=== PATIENT | female | born 2000 | race Caucasian/White ===

== ENCOUNTER 2023-04-20 09:36 | Emergency (ER) | payer OTHER, SELFPAY ==
--- NOTE | ~2023-04-20 | CT_ITS ---
CT of the Abdomen and Pelvis: Indication: Abdominal pain Technique: 2.5 mm axial scans were obtained through the abdomen and pelvis following intravenous adm inistration of 100 cc of Omnipaque 350. Dose reduction technique was used on this scan by utilizing a utomated exposure control and iterative reconstruction technique. The dose-length product (DLP) was 6 65.65 mGy-cm. Findings: Scans through the lung bases are unremarkable. The liver, spleen, pancreas, gallbladder, adrenals and kidneys are within normal limits. No evidence of aortic aneurysm. No retroperitoneal lymphadenopathy. No bowel obstruction or bowel wall thickening. There shotty right lower quadrant lymph nodes are pres ent. Normal appendix. Images through the pelvis were performed. Urinary bladder unremarkable. No pelvic mass seen. No ascit es. Impression: Shotty right lower quadrant lymph nodes. Correlate for mesenteric adenitis. No other significant findings. Reviewed, dictated and finalized at [facility]. Impression: Shotty right lower quadrant lymph nodes. Correlate for mesenteric adenitis. No other significant findings.
[2023-04-20 09:47] VITALS: BP 138/94; PULSE 140; RESP 18; TEMP 36.6; O2SAT 98
--- NOTE | 2023-04-20 09:57 | ED.NAVMDI ---
HPI - Nausea/Vomiting/Diarrhea General Chief complaint: Nausea/Vomiting/Diarrhea Stated complaint: stomach problems Time Seen by Provider: 04/20/23 09:46 History of Present Illness HPI Narrative: 22-year-old female no medical problems presents to the emergency room for evaluation of nausea, vomiting, and diarrhea associated with right upper quadrant abdominal pain. Patient states her abdominal pain radiates into her back and describes it as a stabbing sensation. Denies any blood in her emesis or stool. Last menstrual period was 1 week ago. Related Data Allergies Allergy/AdvReac Type Severity Reaction Status Date / Time amoxicillin Allergy Rash Verified 04/20/23 09:59 cefprozil [From Cefzil] Allergy Rash Verified 04/20/23 09:59 clavulanic acid Allergy Rash Verified 04/20/23 09:59 [From Augmentin] Penicillins Allergy Rash Verified 04/20/23 09:59 Review of Systems Review of Systems: CONSTITUTIONAL: Denies fever, chills, or sweats. EYES: Denies visual changes, redness, or discharge. ENT: Denies rhinorrhea, congestion, sore throat, or otalgia. CARDIOVASCULAR: Denies chest pain, palpitations, or edema. RESPIRATORY: Denies cough or dyspnea. GASTROINTESTINAL: Reports abdominal pain, nausea, vomiting, or diarrhea. GENITOURINARY: Denies dysuria or hematuria. SKIN: Denies rash or itching. MUSCULOSKELETAL: Denies back pain, joint pain, or myalgia. NEUROLOGIC: Denies headache, numbness, dizziness, or weakness. PSYCHIATRIC: Denies anxiety or depression. Exam Narrative: GENERAL: Well-appearing, well-nourished, no physical limitations, and in no acute distress. HEAD: Normocephalic, atraumatic. EYES: Conjunctivae normal, PERRLA and EOMI. CHEST: Clear to auscultation. No respiratory distress. No wheezes rales or rhonchi. HEART: Regular rate and rhythm. No murmur heard. Normal peripheral pulses. ABDOMEN: Soft, right upper quadrant tenderness, nondistended, normal active bowel sounds. BACK: No CVA tenderness EXTREMITIES: Normal range of motion. No edema. No clubbing or cyanosis SKIN: Warm, dry, no rash. No noted wounds NEURO: No focal deficits. Alert and oriented x3. MAEW. CN's II-XI intact bilaterally, normal gait PSYCH: Cooperative. Normal mood and affect. Course Vital Signs Vital signs: Vital Signs Temperature 36.6 C 04/20/23 09:47 Pulse Rate 140 H 04/20/23 09:47 Respiratory Rate 18 04/20/23 09:47 Blood Pressure 138/94 H 04/20/23 09:47 Pulse Oximetry 98 04/20/23 09:47 Oxygen Delivery Room Air 04/20/23 09:47 Temperature 36.6 C 04/20/23 09:47 Pulse Rate 117 H 04/20/23 10:46 Respiratory Rate 22 H 04/20/23 10:46 Blood Pressure 134/87 04/20/23 10:46 Pulse Oximetry 100 04/20/23 10:46 Oxygen Delivery Room Air 04/20/23 09:47 MDM - Nausea/Vomiting/Diarrhea MDM Narrative Medical decision making narrative: 22-year-old female presented emergency room for evaluation of a right upper quadrant abdominal pain associated with nausea and vomiting. Lab work was unremarkable. CT scan shows evidence of possible mesenteric adenitis. Patient responded well to IV Zofran. Discussed findings with patient. We will send patient home with Rx for Zofran. Lab Data 04/20/23 09:59 04/20/23 09:59 Labs: Lab Results 04/20/23 Range/Units 09:59 WBC 10.9 H (4.5-10.0) K/mm3 RBC 5.39 (4.2-5.4) M/mm3 Hgb 14.9 (12.0-15.0) g/dL Hct 45.8 (37.0-47.0) % MCV 85.0 (80-100) fl MCH 27.6 (26-34) pg MCHC 32.5 (32-36) g/dl RDW 14.0 (11.5-14.5) % Plt Count 266 (150-375) k/mm3 MPV 9.3 (7.4-10.4) fl Immature Gran % (Auto) 0.4 (0-0.5) % Neut % (Auto) 88.3 H (45.5-73.1) % Lymph % (Auto) 6.4 L (18.3-44.2) % Jerome % (Auto) 4.3 (2.6-8.5) % Eos % (Auto) 0.3 (0-4.4) % Baso % (Auto) 0.3 (0.2-1.2) % Lymph # (Auto) 0.70 L (0.9-3.2) K/mm3 Jerome # (Auto) 0.5 (0.1-0.6) K/mm3 Eos # (Auto) 0.0 (0-0.3) K/mm3 Baso # (Auto) 0.0 (0.0-0.1
[2023-04-20 10:02] VITALS: BP 120/85; PULSE 139; RESP 20; O2SAT 100
[2023-04-20] MEDS: ONDANSETRON INJ 4 MG/2 ML VIAL IV PUSH (10:06)
[2023-04-20] MEDS: SODIUM CHLORIDE 0.9% IV 1,000 ML 999 ML IV CONT (10:06)
[2023-04-20 10:09] LABS: Basophils Percent Auto 0.3 % (0.2-1.2); Eosinophils Percent Auto 0.3 % (0-4.4); Hematocrit 45.8 % (37.0-47.0); Hemoglobin 14.9 g/dL (12.0-15.0); Immature Granulocyte Absolute 0.04 K/mm3 (0.00-0.031); Immature Granulocyte Percent A 0.4 % (0-0.5); Lymphocytes Percent Auto 6.4 % (18.3-44.2); Mean Corpuscular HGB Conc 32.5 g/dl (32-36); Mean Corpuscular Hemoglobin 27.6 pg (26-34); Mean Platelet Volume 9.3 fl (7.4-10.4); Monocytes Absolute Auto 0.5 K/mm3 (0.1-0.6); Monocytes Percent Auto 4.3 % (2.6-8.5); Neutrophils Absolute Auto 9.6 K/mm3 (1.3-6.7); Neutrophils Percent Auto 88.3 % (45.5-73.1); Platelet Count Result 266 k/mm3 (150-375); Red Blood Count 5.39 M/mm3 (4.2-5.4); White Blood Count 10.9 K/mm3 (4.5-10.0)
[2023-04-20 10:11] LABS: Appearance Urine Clear (Clear); Bilirubin Urine Negative (Negative); Blood Urine Negative (Negative); Color Urine Yellow (Yellow); Glucose Urine UA Negative (Negative); Ketones Urine Trace mg/dL (Negative); Leukocyte Esterase Ur Negative LEU/UL (Negative); Nitrate Urine Negative (Negative); Protein Urine Negative (Negative); Specific Grav Ur 1.027 (1.001-1.035); Urobilinogen Urine 0.2 mg/dL (<2.0)
[2023-04-20 10:16] VITALS: BP 129/93; PULSE 126; RESP 24; O2SAT 98
[2023-04-20 10:25] LABS: Alanine Aminotransferase 24 U/L (6-35); Albumin Level 4.4 g/dL (3.5-5.1); Alkaline Phosphatase 68 U/L (38-126); Anion Gap 11 mmol/L (8-16); Aspartate Amino Transferase 31 U/L (14-36); Bilirubin,Total 0.8 mg/dL (0.2-1.3); Blood Urea Nitrogen 14 mg/dL (7-17); Calcium 8.9 mg/dL (8.4-10.2); Carbon Dioxide 18 mmol/L (22-30); Chloride 109 mmol/L (98-107); Estimated CRCL calculation 141 ml/min; Estimated Glomerular Filt Rate > 60; Glucose 119 mg/dL (65-110); Lipase 187 U/L (23-300); Sodium 138 mmol/L (137-145)
[2023-04-20 10:46] VITALS: BP 134/87; PULSE 117; RESP 22; O2SAT 100
[2023-04-20 10:47] LABS: Add Urine Microscopic? NO
[2023-04-20 12:11] VITALS: BP 122/77; PULSE 120; RESP 22; O2SAT 100
== END 2023-04-20 12:11 | disposition home or self-care (01) ==
PROVIDERS: Emergency Medicine; Emergency Provider Nurse Practitioner Family
DX: I88.0 Nonspecific mesenteric lymphadenitis (principal); R11.2 Nausea with vomiting, unspecified
CPT/HCPCS: 36415; 74177; 80053; 81003; 81025; 83690; 85025; 96361; 96374; 99284; J2405; J7030; Q9967

== ENCOUNTER 2024-08-04 16:13 | Emergency (ER) | payer OTHER, SELFPAY ==
--- NOTE | 2024-08-04 16:16 | ED_ITS ---
HPI - URI/Sore Throat General Chief Complaint: Upper Respiratory Infection Stated Complaint: COUGH/CHEST HEAVY/BACK PAIN Time Seen by Provider: 08/04/24 16:15 Source: patient Mode of arrival: ambulatory Limitations: no limitations History of Present Illness HPI Narrative: Vera is a 24-year-old female patient presenting to the clinic today with complaints of feeling feverish, cough, chest heaviness, pain with inspiration, and back pain x2 days. She reports has felt feverish with some chills. MD elicited complaint: sore throat and nasal congestion Related Data Allergies Allergy/AdvReac Type Severity Reaction Status Date / Time amoxicillin Allergy Mild Rash Verified 08/04/24 16:20 cefprozil (From Cefzil) Allergy Mild Rash Verified 08/04/24 16:20 clavulanic acid (From Allergy Mild Rash Verified 08/04/24 16:20 Augmentin) Penicillins Allergy Mild Rash Verified 08/04/24 16:20 Review of Systems Review of Systems: Pertinent positives per HPI. Patient denies any fever, chills, rash, headache, visual changes, dizziness, palpitations, nausea, vomiting, diarrhea, constipation, abdominal pain, or any urinary issues. PMFSH Comments At the time of my signature, I reviewed and agree with the nursing past medical, surgical, social, and family history. There is no relevant family history pertinent to the patient complaint. Exam Narrative: General: Well-developed, well nourished, in no apparent distress Head: Normocephalic, atraumatic Eyes: Pupils equally round and reactive to light bilaterally, EOM intact, sclera and conjunctive clear, no discharge, lids normal Ears: TMs intact and clear, ear canals clear, no drainage, grossly hearing n ormal. Nose: Nares patent, clear nasal discharge, no inflammation, no sinus tenderness. Mouth: Oral pharynx red without lesions or masses, good dentition, MMM. Postnasal drip Neck: Supple, trachea midline, no enlargement of anterior or posterior cervical nodes, no thyroid masses or goiter palpable. Cardio: Regular rate and rhythm, s1 and s2 normal, no murmur appreciated. Resp: Clear to auscultation bilaterally, no rhonchi, rales, wheezing or rubs Course Course Emergency Course: Portions of this record may have been created with voice recognition software. Level of Care: Express Care Visit Vital Signs Vital signs: Vital Signs Temperature 36.7 C 08/04/24 17:06 Pulse Rate 133 H 08/04/24 17:06 Respiratory Rate 16 08/04/24 17:06 Blood Pressure 128/84 08/04/24 17:06 Pulse Oximetry 100 08/04/24 17:06 Temperature 36.7 C 08/04/24 17:06 Pulse Rate 133 H 08/04/24 17:06 Respiratory Rate 16 08/04/24 17:06 Blood Pressure 128/84 08/04/24 17:06 Pulse Oximetry 100 08/04/24 17:06 Vital signs reviewed MDM - URI/Sore Throat MDM Narrative Medical decision making narrative: At the time of visit patient is resting comfortably on the exam table. Patient appears to be nontoxic. Labs: Influenza and COVID testing completed. Influenza testing was positive for influenza A. COVID testing was negative. Plan: I suspect patient has influenza a. Offer Tamiflu and patient declined. Supportive measures were discussed with the patient and they voiced understanding discharge instructions and agrees to treatment plan. Return precautions reviewed Differential Diagnosis Differential diagnosis: Likely upper respiratory infection, otitis media, sinusitis, viral infection, bronchitis, influenza, pharyngitis and other (COVID) Discharge Plan Discharge Clinical Impression: Influenza A Patient Disposition: Home, Self-Care Condition: Stable Instructions: Antibiotic Form, Influenza (ED) Additional Instructions: Influenza testing was positive for influenza A. COVID testing was negative. Take prescription medications only as prescribed-albuterol inhaler Increase fluids and stay well hydrated Tylenol/motrin for pain/fever Flonase and OTC antihistamines as directed Vicks vapor rub to open sinuses Sinus rinses for congestion Cepacol spray, cough drops, throat lozenges, warm tea with honey/lemon, gargle salt water to soothe throat BRAT diet for diarrhea Clear liquids x 24 hours then advance as tolerated for nausea/vomiting Go to the ED if you develop a worsening in your condition- high fever not controlled by Tylenol or Motrin, dehydration, weakness, lethargy, shortness of breath, or chest pain. Follow up with your PCP in 3-5 days if symptoms persist. Patient Language: Marshallese Prescriptions: New albuterol sulfate 90 mcg/actuation HFA aerosol inhaler 2 puff inhalation Q4-6H PRN (Reason: shortness of breath or wheezing) 30 Days Qty: 8.5 0RF No Action ondansetron 4 mg tablet,disintegrating 4 mg PO Q8H PRN (Reason: nausea and vomiting) Qty: 14 0RF Follow-up/Referrals: UNKNOWN,DOCTOR [Non-Staff] - Stand Alone Forms: Work/School Release IP Time of Disposition: 17:17 Quality NIHSS Nursing Documentation ED NIHSS nursing documentation: reviewed/agree
[2024-08-04 17:06] VITALS: BP 128/84; PULSE 133; RESP 16; TEMP 36.7; O2SAT 100
[2024-08-04 17:21] LABS: EDCOVIDSCREEN Negative (Negative); EDINFLUASCREEN Positive (Negative); EDINFLUBSCREEN Negative (Negative)
== END 2024-08-04 17:20 | disposition home or self-care (01) ==
PROVIDERS: Emergency Provider Nurse Practitioner Family
DX: J10.1 Influenza due to other identified influenza virus with other respiratory manifestations (principal); Z20.822 Contact with and (suspected) exposure to COVID-19; Z86.16 Personal history of COVID-19
CPT/HCPCS: 87426; 87804; 99213; G0463